=== PATIENT | female | born 1990 | race Asian ===

== ENCOUNTER 2016-08-26 03:14 | Observation (INO) | payer OTHER ==
[~2016-08-26] VITALS: Ht 157.5 cm; Wt 50.0 kg
[2016-08-26 03:15] VITALS: BP 141/52; PULSE 100; RESP 20; TEMP 98.3; O2SAT 100
[2016-08-26] MEDS ORDERED: SODIUM CHLORIDE 0.9% FLUSH 5 ML FLUSH IVF PRN (03:45)
[2016-08-26 04:06] LABS: BLOOD, URINE NEG (NEG); GLUCOSE,URINE NEG (NEG); KETONE, URINE NEG (NEG); NITRITE,URINE NEG (NEG); PH, URINE 5.5 (5.0-8.5); SQUAMOUS EPITHELIAL CELL URINE <1 /hpf (0-5); TRANSITIONAL EPI CELLS, URINE <1 /hpf; URINE COLOR YELLOW (YELLW/STRAW)
[2016-08-26 04:09] LABS: AUTOMATED NEUTROPHIL # 4.4 TH/MM3 (1.8-7.7); BASOPHIL % 0.3 % (0.0-2.0); EOSINOPHIL # 0.2 TH/MM3 (0-0.4); EOSINOPHIL % 2.3 % (0.0-4.0); HEMO FLAGS DIFF FINAL; LYMPH % 35.8 % (9.0-44.0); MEAN CELL VOLUME 91.4 FL (80.0-100.0); MEAN CORPUSCULAR HEMOGLOBIN 32.2 PG (27.0-34.0); MEAN CORPUSCULAR HGB CONC 35.2 % (32.0-36.0); MONO % 8.9 % (0.0-8.0); NEUT % 52.7 % (16.0-70.0); PLATELET COUNT 296 TH/MM3 (150-450); RED BLOOD COUNT 4.16 MIL/MM3 (4.00-5.30); RED CELL DISTRIBUTION WIDTH 13.4 % (11.6-17.2); WHITE BLOOD COUNT 8.4 TH/MM3 (4.0-11.0)
[2016-08-26 04:10] LABS: COMMENT (UR) CULT NOT INDICATED; CULTURE IF INDICATED CULT NOT INDICATED
[2016-08-26 04:24] LABS: ALT (GPT) 34 U/L (10-53); ANION GAP 10 MEQ/L (5-15); AST (GOT) 34 U/L (15-37); BICARBONATE 24.3 MEQ/L (21.0-32.0); BLOOD UREA NITROGEN 11 MG/DL (7-18); CHLORIDE 107 MEQ/L (98-107); GLOMERULAR FILTRATION RATE 103 ML/MIN (>89); POTASSIUM 3.3 MEQ/L (3.5-5.1); SODIUM (NA) 141 MEQ/L (136-145)
[2016-08-26 04:26] LABS: ALKALINE PHOSPHATASE 71 U/L (45-117); TOTAL BILIRUBIN ADULT 0.3 MG/DL (0.2-1.0)
[2016-08-26] MEDS ORDERED: MORPHINE SULFATE 4 MG/ML INJ IV PUSH ONE (04:30)
[2016-08-26] MEDS ORDERED: SODIUM CHLOR 0.9% 1000 ML INJ 1,000 ML IV ONE (04:30)
[2016-08-26] MEDS ORDERED: ONDANSETRON HCL 4 MG/2 ML VIAL IV ONE (04:30)
--- NOTE | 2016-08-26 04:30 | PD ---
HPI Chief Complaint: Abdominal Pain Time Seen by Provider: 03:33 Travel History International Travel<30 days: No Contact w/Intl Traveler<30days: No Traveled to known affect area: No History of Present Illness HPI The patient is a 26 year old female who presents to the [facility] emergency department with a history of abdominal pain that began last night around midnight and has been constant although gradually worsening with time. The patient reports that the pain is a constant aching sensation. She reports that the pain is severe at this point. She reports having nausea and vomiting 1. She denies having any diarrhea. Her last bowel movement was yesterday and was reportedly normal. She reports that she has had urinary frequency since yesterday, however no dysuria or urinary urgency. She is 6 weeks status post . The patient reports that she has been healing well. She had her appointment approximately a week ago at the [facility]. She denies having any fevers. She denies having any food intolerances. The patient denies any recent cough, congestion, neck pain, chest pain, shortness of breath, or neurologic symptoms. [facility] Past Medical History Narrative Medical The patient's past medical history is reportedly significant for none. Medical History: Denies Significant Hx ?: Not : 1 Para: 1 Past Surgical History Narrative Surgical The patient's past surgical history is significant for a . Section: Yes Social History Alcohol Use: No Tobacco Use: No Substance Use: No Allergies-Medications (Allergen,Severity, Reaction): Coded Allergies: No Known Allergies (Unverified , 08/26/16) Review of Systems Except as stated in HPI: all other systems reviewed are Neg General / Constitutional: No: Fever Eyes: No: Visual changes HENT: No: Headaches Cardiovascular: No: Chest Pain or Discomfort Respiratory: No: Shortness of Breath Gastrointestinal: Positive: Nausea, Vomiting, Abdominal Pain, No: Changes in Bowel Habits, Indigestion, Loss of Appetite Genitourinary: No: Dysuria Musculoskeletal: No: Pain Skin: No Rash Neurologic: No: Weakness, Focal Abnormalities, Change in Mentation, Slurred Speech, Sensory Disturbance Psychiatric: No: Depression Endocrine: No: Polydipsia Hematologic/Lymphatic: No: Easy Bruising Physical Exam Narrative General: The patient is a well-developed well-nourished female who is uncomfortable appearing on examination. Head and Neck exam: Head is normocephalic atraumatic. Eyes: EOMI, pupils are equal round and reactive to light. Nose: Midline septum with pink mucous membranes Mouth: Dentition unremarkable. Moist mucus membranes. Posterior oropharynx is not erythematous. No tonsillar hypertrophy. Uvula midline. Airway patent. Neck: No palpable lymphadenopathy. No nuchal rigidity. No thyromegaly. Cardiovascular: Regular rate and rhythm without murmurs, gallops, or rubs. Lungs: Clear to auscultation bilaterally. No wheezes, rhonchi, or rales. Abdomen: Soft, with tenderness on palpation in the midepigastric area and right upper quadrant of the abdomen. The patient has a positive Wood sign. The patient has no other tenderness on palpation of the other quadrants of the abdomen. No tenderness on palpation of McBurney's point. No guarding, rebound, or rigidity. Extremities: No clubbing, cyanosis, or edema. 2+ pulses in all 4 extremities. No calf tenderness on palpation. Back: No spinous process tenderness to palpation. The patient has bilateral CVA tenderness on palpation worse on the left compared to the right. Neurologic Exam: Grossly nonfocal. Skin Exam: No rash noted. Intact skin that is warm and dry. Data Data Last Documented VS Vital Signs Date Time Temp Pulse Resp B/P Pulse Ox O2 Delivery O2 Flow Rate FiO2 08/26/16 03:15 98.3 100 20 141/52 100 Room Air Orders Complete Blood Count With Diff (08/26/16 03:33) Comprehensive Metabolic Panel (08/26/16 03:33) Lipase (08/26/16 03:33) Lactic Acid (08/26/16 03:33) Urinalysis - C+S If Indicated (08/26/16 03:33) Iv Access Insert/Monitor (08/26/16 03:33) Ecg Monitoring (08/26/16 03:33) Oximetry (08/26/16 03:33) Sodium Chloride 0.9% Flush (Ns Flush) (08/26/16 03:45) Ed Urine Pregnancytest Poc (08/26/16 03:33) C-Reactive Protein (Crp) (08/26/16 03:33) Us Abdomen Gallbladder (08/26/16 04:24) Ct Abd/Pel W Iv Contrast(Rout) (08/26/16 04:24) Sodium Chlor 0.9% 1000 Ml Inj (Ns 1000 M (08/26/16 04:30) Ondansetron Inj (Zofran Inj) (08/26/16 04:30) Morphine Inj (Morphine Inj) (08/26/16 04:30) Iohexol 350 Inj (Omnipaque 350 Inj) (08/26/16 05:10) Admit Order (Ed Use Only) (08/26/16 06:37) Labs Laboratory Tests Test 08/26/16 03:55 White Blood Count 8.4 TH/MM3 Red Blood Count 4.16 MIL/MM3 Hemoglobin 13.4 GM/DL Hematocrit 38.0 % Mean Corpuscular Volume 91.4 FL Mean Corpuscular Hemoglobin 32.2 PG Mean Corpuscular Hemoglobin 35.2 % Concent Red Cell Distribution Width 13.4 % Platelet Count 296 TH/MM3 Mean Platelet Volume 7.7 FL Neutrophils (%) (Auto) 52.7 % Lymphocytes (%) (Auto) 35.8 % Monocytes (%) (Auto) 8.9 % Eosinophils (%) (Auto) 2.3 % Basophils (%) (Auto) 0.3 % Neutrophils # (Auto) 4.4 TH/MM3 Lymphocytes # (Auto) 3.0 TH/MM3 Monocytes # (Auto) 0.8 TH/MM3 Eosinophils # (Auto) 0.2 TH/MM3 Basophils # (Auto) 0.0 TH/MM3 CBC Comment DIFF FINAL Differential Comment Urine Color YELLOW Urine Turbidity CLEAR Urine pH 5.5 Urine Specific [place] 1.009 Urine Protein NEG mg/dL Urine Glucose (UA) NEG mg/dL Urine Ketones NEG mg/dL Urine Occult Blood NEG Urine Nitrite NEG Urine Bilirubin NEG Urine Urobilinogen LESS THAN 2.0 MG/DL Urine Leukocyte Esterase NEG Urine RBC 1 /hpf Urine WBC 1 /hpf Urine Squamous Epithelial <1 /hpf Cells Urine Transitional Epithelial <1 /hpf Cells Microscopic Urinalysis Comment CULT NOT INDICATED Sodium Level 141 MEQ/L Potassium Level 3.3 MEQ/L Chloride Level 107 MEQ/L Carbon Dioxide Level 24.3 MEQ/L Anion Gap 10 MEQ/L Blood Urea Nitrogen 11 MG/DL Creatinine 0.69 MG/DL Estimat Glomerular Filtration 103 ML/MIN Rate Random Glucose 130 MG/DL Lactic Acid Level 1.8 mmol/L Calcium Level 9.0 MG/DL Total Bilirubin 0.3 MG/DL Aspartate Amino Transf 34 U/L (AST/SGOT) Alanine Aminotransferase 34 U/L (ALT/SGPT) Alkaline Phosphatase 71 U/L C-Reactive Protein LESS THAN 0.29 MG/DL Total Protein 7.4 GM/DL Albumin 3.6 GM/DL Lipase 241 U/L MDM Medical Decision Making Medical Screen Exam Complete: Yes Emergency Medical Condition: Yes Medical Record Reviewed: Yes Interpretation(s) Last Impressions Gall Bladder Ultrasound 08/26/16423 Signed Impressions: Service Date/Time: Friday, August 26, 2016 05:25 - CONCLUSION: 1. 5 mm gallbladder wall polyp. No stones. Trace pericholecystic fluid. 2. Otherwise negative. Khai Fernández MD Abdomen/Pelvis CT 08/26/16423 Signed Impressions: Service Date/Time: Friday, August 26, 2016 04:56 - CONCLUSION: 1. Mild gallbladder distention without mural thickening or pericholecystic fluid. 2. Otherwise negative. Khai Fernández MD Differential Diagnosis Pyelonephritis, versus pancreatitis, versus biliary colic, versus acute cholecystitis, versus peptic ulcer disease Narrative Course During the course of the patients emergency department visit, the patients history, examination, and differential diagnosis were reviewed with the patient. The patient had IV access obtained and blood work sent for analysis. The patient was placed on a laboratory monitor with oximetry and blood pressure monitoring. A CT scan of the abdomen and pelvis has been ordered, ultrasound of the right upper quadrant has been ordered. The patient was provided normal saline IV fluids, morphine for pain, Zofran for nausea. The patients laboratory studies were reviewed and remarkable for a white count of 8.4, hemoglobin 13.4, platelets 296 with 8.9 monocytes. CMP is remarkable for potassium of 3.3, glucose 1:30, lipase 241, C-reactive protein less than 0.29, lactic acid 1.8, LT within normal limits, urinalysis is unremarkable. Radiology studies were reviewed and remarkable for a CT scan of the abdomen and pelvis that showed gallbladder distention, no other acute abnormality. Ultrasound of the gallbladder reveals a 5 mm gallbladder wall polyp, no stones, trace pericholecystic fluid, otherwise negative. The patient is resting comfortably and feels better, is alert and in no distress. The patients results and examination findings were discussed with the patient. He repeat examination is unremarkable and benign. The history, exam, diagnostic testing, and current condition do not suggest any significant pathology to warrant further testing, continued ED treatment, admission, or surgical evaluation at this point. The vital signs have been stable. The patient does not have uncontrollable pain, intractable vomiting, or other significant symptoms. The patient's condition is stable and appropriate for discharge. The patient will pursue further outpatient evaluation with a primary care physician or other designated or consulting physician as indicated in the discharge instructions. The patient expressed understanding and was agreeable with this plan. Physician Communication Physician Communication The patient's case is discussed with Dr. Deleon who did agree to admit the patient for further evaluation and treatment at this time. The patient's case was additionally discussed with Dr. Hale at approximately 6:45 AM. He did not recommend a HIDA scan. He recommended that Dr. Lamb evaluate the patient this a.m. as he comes on for the hospitalist service and after repeat examination of the patient's abdomen, consultation with general surgery at that time if he continues to be concerned about her gallbladder. Diagnosis Primary Impression: Abdominal pain Qualified Code: R10.11 - Right upper quadrant abdominal pain Additional Impression: Flank pain Admitting Information Admitting Physician Requests: Shellie Hicks MD Aug 26, 2016 04:30
[2016-08-26] MEDS ORDERED: IOHEXOL 350 MG/ML 10 ML VIAL (for RAD DIAG) IV ONE (05:10)
--- NOTE | 2016-08-26 05:36 | RADRPT ---
EXAM DATE/TIME: 08/26/2016 04:56 [facility] COMPARISON: No previous studies available for comparison. INDICATIONS : Right upper qaudrant aand flank pain. IV CONTRAST: 70 cc Omnipaque 350 (iohexol) IV ORAL CONTRAST: No oral contrast ingested. RADIATION DOSE: 4.46 CTDIvol (mGy) MEDICAL HISTORY : None SURGICAL HISTORY : section. ENCOUNTER: Initial ACUITY: 1 day PAIN SCALE: 6/10 LOCATION: Right upper quadrant TECHNIQUE: Volumetric scanning of the abdomen and pelvis was performed. Using automated exposure control and ad justment of the mA and/or kV according to patient size, radiation dose was kept as low as reasonably achievable to obtain optimal diagnostic quality images. FINDINGS: LOWER LUNGS: The visualized lower lungs are clear. LIVER: Homogeneous density without lesion. There is no dilation of the biliary tree. No calcified gallston es. There is some gallbladder distention without mural thickening or pericholecystic fluid SPLEEN: Normal size without lesion. PANCREAS: Within normal limits. KIDNEYS: Normal in size and shape. There is no mass, stone or hydronephrosis. ADRENAL GLANDS: Within normal limits. VASCULAR: There is no aortic aneurysm. BOWEL/MESENTERY: The stomach, small bowel, and colon demonstrate no acute abnormality. There is no free intraperitone al air or fluid. ABDOMINAL WALL: Within normal limits. RETROPERITONEUM: There is no lymphadenopathy. BLADDER: No wall thickening or mass. REPRODUCTIVE: Within normal limits. Uterus is retroflexed. INGUINAL: There is no lymphadenopathy or hernia. MUSCULOSKELETAL: Within normal limits for patient age. CONCLUSION: 1. Mild gallbladder distention without mural thickening or pericholecystic fluid. 2. Otherwise negative. Khai Fernández MD on August 26, 2016 at 5:30 Board Certified Radiologist. This report was verified electronically.
--- NOTE | 2016-08-26 06:28 | RADRPT ---
EXAM DATE/TIME: 08/26/2016 05:25 [facility] COMPARISON: CT ABDOMEN & PELVIS W CONTRAST, August 26, 2016, 4:56. INDICATIONS : Abdominal pain, nause and vomiting. Six weeks post . MEDICAL HISTORY : Abdominal pain, nause and vomiting. Six weeks post . SURGICAL HISTORY : section. ENCOUNTER: Initial ACUITY: 1 day PAIN SCORE: 9/10 LOCATION: Right upper quadrant MEASUREMENTS: LIVER: 16.1 cm length COMMON DUCT: 2 mm RIGHT KIDNEY: 10.4 x 4.5 x 3.5 cm FINDINGS: LIVER: Normal echotexture without focal lesion or ductal dilatation. COMMON DUCT: No intraluminal mass or stone visualized. GALLBLADDER: A small 5 mm mural polyp. Trace pericholecystic fluid. No mural thickening PANCREAS: The visualized portions are within normal limits. RIGHT KIDNEY: No evidence of hydronephrosis, stone, or mass. CONCLUSION: 1. 5 mm gallbladder wall polyp. No stones. Trace pericholecystic fluid. 2. Otherwise negative. Khai Fernández MD on August 26, 2016 at 6:20 Board Certified Radiologist. This report was verified electronically.
[2016-08-26 08:33] VITALS: O2SAT 100
[2016-08-26 08:35] VITALS: BP 105/67; PULSE 72; RESP 15; O2SAT 100
[2016-08-26] MEDS ORDERED: PANTOPRAZOLE SOD 40 MG DELAYED RELEASE TAB PO ONE (09:45)
--- NOTE | 2016-08-26 09:45 | HHI.HP ---
HPI Service CP Hospitalists Primary Care Physician No Primary Care Physician Admission Diagnosis Intractable abdominal pain, pericholecytic fluid r/o cholecystitis Chief Complaint: Abdominal pain Travel History International Travel<30 Days: No Contact w/Intl Traveler <30 Da: No Traveled to Known Affected Are: No History of Present Illness Ms. Helm is a pleasant 26 y/o [place] female who is about 6 weeks post- from a cesarian section without any other significant PMH. She presented to the ED during the night with complaints of abdominal pain. Pts interprets as the pt does not speak Occitan. He reports that around midnight last night the pt started complaining of upper abdominal pain and upper back pain which was described as sharp in nature. She had one episode of vomiting prior to arrival in the ED. Pt had not had pain like this previously. Pts reports that while she was she had some issues with lower abdominal pain but never any upper abd pain. Pt had a CT Abd/pelvis in the ED which noted mild gallbladder distention without mural thickening or pericholecystic fluid. She then had a GB US which noted 5 mm gallbladder wall polyp, no stones and trace pericholecystic fluid. Pts LFTs and lipase were all WNL. Pt had a normal WBC count and has been afebrile. She reports that her abdominal pain has resolved while in the ED but she is still having some back pain which is reproducible with palpation on the right side of her back. Pts reports that she has not been eating any fried or fatty foods and has not eaten anything unusual. The pt is not . There has been no issues with dysuria, urinary frequency or hematuria. The pts also notes that since her cesarian section the pt has had a few episodes of rectal bleeding. She denies any constipation, straining or rectal pain. Denies any loose stools or diarrhea. They just called the OBGyn yesterday regarding the issue of the rectal bleeding but have not heard back from the nurse yet. Review of Systems Constitutional: DENIES: Fever, Chills Respiratory: DENIES: Cough, Shortness of breath Cardiovascular: DENIES: Chest pain, Palpitations Gastrointestinal: COMPLAINS OF: Abdominal pain, BRB per rectum, Vomiting, DENIES: Black stools, Bloody stools, Constipation, Diarrhea, GERD Genitourinary: DENIES: Urinary frequency, Urinary incontinence, Urgency, Dysuria Musculoskeletal: COMPLAINS OF: Back pain Integumentary: DENIES: Rash Neurologic: DENIES: Headache Psychiatric: DENIES: Confusion, Depression Past Family Social History Past Medical History Post- 6 weeks Past Surgical History Cesarian section 6 weeks ago Reported Medications No home medications Allergies: Coded Allergies: No Known Allergies (Unverified , 08/26/16) Family History Noncontributory Social History Denies any alcohol, tobacco or illicit drug use Physical Exam Vital Signs Vital Signs Date Time Temp Pulse Resp B/P Pulse Ox O2 Delivery O2 Flow Rate FiO2 08/26/16 08:35 72 15 105/67 100 Room Air 08/26/16 08:33 100 Room Air 08/26/16 08:32 15 08/26/16 03:15 98.3 100 20 141/52 100 Room Air Physical Exam GENERAL: This is a well-nourished, well-developed patient, in no apparent distress. HEENT: Atraumatic. Normocephalic. No temporal or scalp tenderness. No scleral icterus. Airway patent. NECK: Trachea midline, supple, nontender CARDIO: Regular RESP: CTA bilaterally. No wheezes, rales, or rhonchi. ABD: +BS, soft, non-tender, nondistended. Negative Wood's sign MUSC: Extremities without clubbing, cyanosis, or edema. Pt with reproducible pain with palpation of the right side of the back, around the shoulderblade area. NEURO: Awake and alert. Motor and sensory grossly within normal limits. Normal speech. Laboratory Laboratory Tests Test 08/26/16 03:55 White Blood Count 8.4 Red Blood Count 4.16 Hemoglobin 13.4 Hematocrit 38.0 Mean Corpuscular Volume 91.4 Mean Corpuscular Hemoglobin 32.2 Mean Corpuscular Hemoglobin 35.2 Concent Red Cell Distribution Width 13.4 Platelet Count 296 Mean Platelet Volume 7.7 Neutrophils (%) (Auto) 52.7 Lymphocytes (%) (Auto) 35.8 Monocytes (%) (Auto) 8.9 Eosinophils (%) (Auto) 2.3 Basophils (%) (Auto) 0.3 Neutrophils # (Auto) 4.4 Lymphocytes # (Auto) 3.0 Monocytes # (Auto) 0.8 Eosinophils # (Auto) 0.2 Basophils # (Auto) 0.0 CBC Comment DIFF FINAL Differential Comment Urine Color YELLOW Urine Turbidity CLEAR Urine pH 5.5 Urine Specific [place] 1.009 Urine Protein NEG Urine Glucose (UA) NEG Urine Ketones NEG Urine Occult Blood NEG Urine Nitrite NEG Urine Bilirubin NEG Urine Urobilinogen LESS THAN 2.0 Urine Leukocyte Esterase NEG Urine RBC 1 Urine WBC 1 Urine Squamous Epithelial <1 Cells Urine Transitional Epithelial <1 Cells Microscopic Urinalysis Comment CULT NOT INDICATED Sodium Level 141 Potassium Level 3.3 Chloride Level 107 Carbon Dioxide Level 24.3 Anion Gap 10 Blood Urea Nitrogen 11 Creatinine 0.69 Estimat Glomerular Filtration 103 Rate Random Glucose 130 Lactic Acid Level 1.8 Calcium Level 9.0 Total Bilirubin 0.3 Aspartate Amino Transf 34 (AST/SGOT) Alanine Aminotransferase 34 (ALT/SGPT) Alkaline Phosphatase 71 C-Reactive Protein LESS THAN 0.29 Total Protein 7.4 Albumin 3.6 Lipase 241 Result Diagram: 08/26/1635408/26/16354 Imaging Last Impressions Gall Bladder Ultrasound 08/26/16423 Signed Impressions: Service Date/Time: Friday, August 26, 2016 05:25 - CONCLUSION: 1. 5 mm gallbladder wall polyp. No stones. Trace pericholecystic fluid. 2. Otherwise negative. Khai Fernández MD Abdomen/Pelvis CT 08/26/16423 Signed Impressions: Service Date/Time: Friday, August 26, 2016 04:56 - CONCLUSION: 1. Mild gallbladder distention without mural thickening or pericholecystic fluid. 2. Otherwise negative. Khai Fernández MD Septic Shock Reassessment Heart: Regular rate and rhythm Lungs: Clear Skin: Warm Peripheral Pulses: Bounding Right Radial Bounding Left Radial Bounding Right Popliteal Bounding Left Popliteal Bounding Right Dorsalis Pedis Bounding Left Dorsalis Pedis Bounding Right Posterior Tibial Bounding Left Posterior Tibial Capillary Refill: <2 seconds Assessment and Plan Problem List: (1) Abdominal pain Status: Acute Plan: - Pt had acute onset of sharp upper abdominal pain during the night last night. - She had one episode of nausea and vomiting. - CT abd/pelvis noted mild gallbladder distention without mural thickening or pericholecystic fluid. She does appear to have a lot of gas present upon review of her CT scan images. - GB US which noted 5 mm gallbladder wall polyp, no stones and trace pericholecystic fluid. - Pts LFTs and lipase were all WNL. Pt had a normal WBC count and has been afebrile. - She reports that her abdominal pain has resolved while in the ED and has a negative Wood sign on exam but she is still having some back pain which is reproducible with palpation on the right side of her back but the back pain has been going on since she had the baby. - Her pain may have been related to gas pain vs. gastroenteritis vs. possibly cholecystitis (although less likely) - PPI - Simethicone PRN - Resume regular diet and see if she tolerates this. If she is asymptomatic with food intake then plan for discharge to home to followup with her PCP, Dr. Robert Hardin. - She may need followup with General surgery if she has any repeat episodes of abdominal pain. (2) Rectal bleed Status: Acute Plan: - Pt has had a few episodes of rectal bleeding post-, likely related to hemorrhoids. - She has contacted her OBGyn yesterday regarding this. - Recommend stool softeners to keep stools soft and avoid straining and OTC hemorrhoidal therapies. - Sitz bathes - Pt should use wet wipes instead of toilet paper when cleaning after BMs. Assessment and Plan Patient examined. Assessment and plan formulated with Anastacia Liu PA-C. I agree with the above. Pt with right flank tenderness for weeks. reproducible tenderness/msk. she carries baby over this flank. also had some upper abdomen pain both ruq/luq after eating rice/soup last night. not clearly cholecystitis on exam. no wood sign. ct a/p on my review just remarkable for alot of gas in stomach and upper intestines. so one would consider her pain related to gas. Her abdomen is not painful today and she will eat lunch now. If tolerates then will d/c home with f/u. 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 Problem Qualifiers (1) Abdominal pain: Qualified Code: R10.11 - Right upper quadrant abdominal pain Anastacia Liu Aug 26, 2016 09:45 Guero Lamb MD Aug 26, 2016 12:01
[2016-08-26 10:15] VITALS: BP 99/68; PULSE 75; RESP 17; TEMP 97.2; O2SAT 100
[2016-08-26] MEDS ORDERED: POTASSIUM CHLORIDE 20 MEQ CONTROLLED RELEASE TAB PO ONE (11:45)
[2016-08-26 12:38] VITALS: BP 94/52; PULSE 65; RESP 16; TEMP 98.1; O2SAT 100
[2016-08-26] MEDS ORDERED: SIME1CHW13 CHEW (14:34)
--- NOTE | 2016-08-26 14:55 | HHI.DCPOC ---
Discharge Care Plan Diagnosis: (1) Abdominal pain (2) Rectal bleed Goals to Promote Your Health - Pt is to followup with her PCP, Dr. Flynn Hardin, in 1 week, call for an appt. - She can take Simethicone 125mg chewable tablets 3-4 times daily prior to food intake - Pt has had a few episodes of rectal bleeding post-, likely related to hemorrhoids. - She is to followup with her OBGyn regarding this. - Recommend stool softeners to keep stools soft and avoid straining and OTC hemorrhoidal therapies, like TUCKs pads or Preparation H cream. - Sitz bathes - Pt should use wet wipes instead of toilet paper when cleaning after BMs. Directions to Meet Your Goals Take your medications as prescribed Follow your dietary instruction Follow activity as directed Keep your appointments as scheduled Take your immunizations and boosters as scheduled If your symptoms worsen call your PCP, if no PCP go to Urgent Care Center or Emergency Room Smoking is Dangerous to Your Health. Avoid second hand smoke Call the 24-hour hour crisis hotline for domestic abuse at Anastacia Liu Aug 26, 2016 14:55
[2016-08-26 16:07] VITALS: BP 94/50; PULSE 73; RESP 17; TEMP 98.1; O2SAT 97
[2016-08-27] MEDS ORDERED: PANTOPRAZOLE SOD 40 MG DELAYED RELEASE TAB PO SCH (09:00)
== END 2016-08-26 18:17 | disposition home or self-care (01) ==
LOC: NEPE 03:14 → NEDA 06:39 → NEPGCP 09:17
PROVIDERS: ADMIT Hospitalist; ATTEND Hospitalist
DX: K82.8 Other specified diseases of gallbladder (principal); K62.5 Hemorrhage of anus and rectum; R35.0 Frequency of micturition; R10.11 Right upper quadrant pain; R11.2 Nausea with vomiting, unspecified; M54.9 Dorsalgia, unspecified
CPT/HCPCS: 74177; 76705; 80053; 81001; 83605; 83690; 84703; 85025; 86140; 96361; 96374; 96375; 99285; G0378; J2270; J2405; J7030; Q9967